=== PATIENT | male | born 1935 | race Caucasian/White ===

== ENCOUNTER 2016-02-29 12:50 | Outpatient (CLI) | payer MEDICARE ==
[2016-02-29 13:54] LABS: Anion Gap 14 mmol/L (10-20); BUN (Urea Nitrogen) 19 mg/dL (8.4-25.7); Calc. Creatinine Clearance 0 mL/min (70-130); Carbon Dioxide 24 mmol/L (23-31); Chloride 106 mmol/L (98-107); Estimated GFR-MDRD 33
== END 2016-02-29 12:51 | disposition home or self-care (01) ==
LOC: BURLAB 12:50
PROVIDERS: ATTEND Internal Medicine Cardiovascular Disease
DX: N18.9 Chronic kidney disease, unspecified (principal)
CPT/HCPCS: 36415; 80048

== ENCOUNTER 2016-04-04 10:36 | Outpatient (CLI) | payer MEDICARE ==
[2016-04-04 11:43] LABS: Anion Gap 14 mmol/L (10-20); BUN (Urea Nitrogen) 20 mg/dL (8.4-25.7); Calc. Creatinine Clearance 0 mL/min (70-130); Calcium 9.2 mg/dL (7.8-10.44); Carbon Dioxide 25 mmol/L (23-31); Chloride 105 mmol/L (98-107); Estimated GFR-MDRD 34
== END 2016-04-04 10:37 | disposition home or self-care (01) ==
LOC: BURLAB 10:36
PROVIDERS: ATTEND Internal Medicine Cardiovascular Disease
DX: I50.32 Chronic diastolic (congestive) heart failure (principal)
CPT/HCPCS: 36415; 80048

== ENCOUNTER 2016-04-11 13:58 | Outpatient (CLI) | payer MEDICARE ==
--- NOTE | 2016-04-11 17:24 | RAD ---
RIGHT KNEE 4 VIEWS: Date: 04/11/16 FINDINGS: No gross acute fracture was seen. There is a joint effusion, however, so the possibility of internal derangement is raised. A MRI would be needed to prove or disprove this. The tibial plateau seems in tact. There is bony spurring around the knee joint and the patellofemoral joint. Some faint arterial calcifications are present. The femur is subluxed somewhat medially on the tibia. IMPRESSION: 1. Joint effusion. Internal derangement not ruled out. 2. Degenerative changes as noted. POS: HOME
== END 2016-04-11 13:59 | disposition home or self-care (01) ==
LOC: BURRAD 13:58
PROVIDERS: ATTEND Family Medicine
DX: M25.561 Pain in right knee (principal); M25.461 Effusion, right knee

== ENCOUNTER 2016-08-09 13:03 | Emergency (ER) | payer MEDICARE ==
[2016-08-09 13:31] LABS: #Basophils 0.1 thou/uL (0.0-0.2); #Eosinphils 0.1 thou/uL (0.0-0.7); #Lymphocytes 0.9 thou/uL (1.20-3.40); #Monocytes 0.9 thou/uL (0.11-0.59); #Neutrophils 5.9 thou/uL (1.40-6.50); %Basophils 1.5 % (0.0-1.0); %Eosinophils 0.9 % (0.0-10.0); %Lymphocytes 11.7 % (21.0-51.0); %Monocytes 11.2 % (0.0-10.0); %Neutrophils 74.6 % (42.0-75.0); Hemoglobin 10.5 g/dL (14.0-18.0); Mean Corpuscular HGB CONC 34.8 g/dL (32.0-36.0); Mean Corpuscular Hemoglobin 33.3 pg (27.0-31.0); Mean Corpuscular Volume 95.8 fl (80.0-94.0); Mean Platelet Volume 5.8 fL (7.4-10.4); Platelet Count 154 thou/uL (130-400); RBC Distribution Width 13.7 % (11.5-14.5); Red Blood Cell (RBC) Count 3.14 mill/uL (4.70-6.10); White Blood Cell (WBC) Count 7.9 thou/uL (4.8-10.8)
[2016-08-09 13:48] LABS: CKMB 1.1 ng/mL (0-6.6); Troponin I 0.023 ng/mL (< 0.028)
[2016-08-09 13:49] LABS: ALT (SGPT) 12 U/L (8-55); AST (SGOT) 16 U/L (5-34); Albumin 3.4 g/dL (3.4-4.8); Alkaline Phosphatase 145 U/L (40-150); Anion Gap 14 mmol/L (10-20); BUN (Urea Nitrogen) 26 mg/dL (8.4-25.7); Bilirubin, Total 1.3 mg/dL (0.2-1.2); Calc. Creatinine Clearance 0 mL/min (70-130); Carbon Dioxide 19 mmol/L (23-31); Chloride 109 mmol/L (98-107); Estimated GFR-MDRD 27; Globulin 3.4 g/dL (2.4-3.5); Glucose 235 mg/dL (83-110); Magnesium 1.8 mg/dL (1.6-2.6); Potassium 4.7 mmol/L (3.5-5.1); Protein, Total 6.8 g/dL (5.8-8.1); Sodium 137 mmol/L (136-145)
--- NOTE | 2016-08-09 21:37 | CT ---
CT OF THE BRAIN WITHOUT CONTRAST 08/09/16 Comparison was made with a 01/29/12 CT scan. Diffuse atrophy and patchy hypolucency throughout the deep white matter was present consistent with chronic microvascular ischemia. The appearance is not substantially different than before. The ventr icles are normal in size for age and atrophy. There are no findings of acute stroke, though small st rokes would be easily missed against the ischemic background. No bleeding, mass, or edema was seen. The calvarium appears normal. The sphenoid sinus and mastoid air cells were clear. IMPRESSION: Chronic ischemic changes but no acute intracranial finding. POS: HOME
== END 2016-08-09 14:36 | disposition home or self-care (01) ==
LOC: BURERS 13:03
DX: H81.13 Benign paroxysmal vertigo, bilateral (principal); E11.9 Type 2 diabetes mellitus without complications; I25.10 Atherosclerotic heart disease of native coronary artery without angina pectoris; I12.9 Hypertensive chronic kidney disease with stage 1 through stage 4 chronic kidney disease, or unspecified chronic kidney disease; E11.22 Type 2 diabetes mellitus with diabetic chronic kidney disease; N18.9 Chronic kidney disease, unspecified; E78.5 Hyperlipidemia, unspecified; I49.9 Cardiac arrhythmia, unspecified; I48.91 Unspecified atrial fibrillation; F17.220 Nicotine dependence, chewing tobacco, uncomplicated; Z79.899 Other long term (current) drug therapy
CPT/HCPCS: 36415; 70450; 80053; 82553; 83735; 83880; 84484; 85025; 93005

== ENCOUNTER 2016-08-14 10:38 | Outpatient (CLI) | payer MEDICARE ==
[2016-08-14 11:52] LABS: #Basophils 0.1 thou/uL (0.0-0.2); #Eosinphils 0.2 thou/uL (0.0-0.7); #Lymphocytes 1.2 thou/uL (1.20-3.40); #Monocytes 0.9 thou/uL (0.11-0.59); #Neutrophils 4.2 thou/uL (1.40-6.50); %Basophils 1.3 % (0.0-1.0); %Eosinophils 2.6 % (0.0-10.0); %Lymphocytes 18.2 % (21.0-51.0); %Monocytes 14.2 % (0.0-10.0); %Neutrophils 63.8 % (42.0-75.0); Hemoglobin 11.4 g/dL (14.0-18.0); Mean Corpuscular Hemoglobin 32.7 pg (27.0-31.0); Mean Corpuscular Volume 96.2 fl (80.0-94.0); Mean Platelet Volume 5.7 fL (7.4-10.4); Platelet Count 226 thou/uL (130-400); RBC Distribution Width 13.7 % (11.5-14.5); Red Blood Cell (RBC) Count 3.47 mill/uL (4.70-6.10); White Blood Cell (WBC) Count 6.6 thou/uL (4.8-10.8)
[2016-08-14 12:08] LABS: ALT (SGPT) 13 U/L (8-55); AST (SGOT) 17 U/L (5-34); Albumin 3.7 g/dL (3.4-4.8); Alkaline Phosphatase 150 U/L (40-150); Anion Gap 15 mmol/L (10-20); BUN (Urea Nitrogen) 28 mg/dL (8.4-25.7); Bilirubin, Total 0.9 mg/dL (0.2-1.2); Calc. Creatinine Clearance 0 mL/min (70-130); Calcium 9.2 mg/dL (7.8-10.44); Carbon Dioxide 23 mmol/L (23-31); Cardiac Risk 4.9 (Less than 4.5); Chloride 106 mmol/L (98-107); Cholesterol 170 mg/dl (< 200 Desired); Estimated GFR-MDRD 27; Globulin 3.5 g/dL (2.4-3.5); Glucose 163 mg/dL (83-110); HDL Cholesterol 35 mg/dL (>60 Neg Risk); LDL Cholesterol, Calculated 109 mg/dL; Protein, Total 7.2 g/dL (5.8-8.1); Sodium 139 mmol/L (136-145); Triglycerides 130 mg/dL (Less than 150)
[2016-08-14 12:18] LABS: Hemoglobin A1c 7.1 % (4.0-6.0)
== END 2016-08-14 10:39 | disposition home or self-care (01) ==
LOC: HPCALD 10:38
PROVIDERS: ATTEND Family Medicine
DX: E78.5 Hyperlipidemia, unspecified (principal); E53.8 Deficiency of other specified B group vitamins; E11.9 Type 2 diabetes mellitus without complications; I10 Essential (primary) hypertension
CPT/HCPCS: 36415; 80053; 80061; 82607; 83036; 85025

== ENCOUNTER 2016-09-13 10:33 | Emergency (ER) | payer MEDICARE ==
[2016-09-13] MEDS ORDERED: EPINEPHrine 1 MG/10 ML Abboject SYRINGE ONE (10:49)
[2016-09-13 10:51] LABS: #Basophils 0.2 thou/uL (0.0-0.2); #Neutrophils 6.3 thou/uL (1.40-6.50); %Basophils 2.1 % (0.0-1.0); %Eosinophils 0.5 % (0.0-10.0); %Monocytes 11.3 % (0.0-10.0); %Neutrophils 74.1 % (42.0-75.0); Mean Corpuscular HGB CONC 33.8 g/dL (32.0-36.0); Mean Corpuscular Volume 97.4 fl (80.0-94.0); Mean Platelet Volume 5.9 fL (7.4-10.4); Platelet Count 209 thou/uL (130-400); RBC Distribution Width 14.1 % (11.5-14.5); Red Blood Cell (RBC) Count 3.33 mill/uL (4.70-6.10); White Blood Cell (WBC) Count 8.5 thou/uL (4.8-10.8)
[2016-09-13 11:01] LABS: INR-International Normal Ratio 1.2; PTT 34.9 SEC (22.9-36.1); Prothrombin Time 15.1 SEC (12.0-14.7)
[2016-09-13 11:12] LABS: ALT (SGPT) 10 U/L (8-55); AST (SGOT) 17 U/L (5-34); Albumin 3.6 g/dL (3.4-4.8); Alkaline Phosphatase 151 U/L (40-150); Anion Gap 17 mmol/L (10-20); BUN (Urea Nitrogen) 28 mg/dL (8.4-25.7); Bilirubin, Total 1.4 mg/dL (0.2-1.2); Calc. Creatinine Clearance 0 mL/min (70-130); Calcium 9.4 mg/dL (7.8-10.44); Carbon Dioxide 19 mmol/L (23-31); Chloride 105 mmol/L (98-107); Estimated GFR-MDRD 25; Globulin 4.1 g/dL (2.4-3.5); Glucose 246 mg/dL (83-110); Potassium 4.2 mmol/L (3.5-5.1); Protein, Total 7.7 g/dL (5.8-8.1); Sodium 137 mmol/L (136-145)
[2016-09-13 11:13] LABS: CKMB 1.1 ng/mL (0-6.6); Troponin I 0.026 ng/mL (< 0.028)
--- NOTE | 2016-09-13 21:24 | RAD ---
PORTABLE CHEST 09/13/16 An AP portable film at 1047 is compared with a 01/18/16 study done at [facility]. There is a moderate sized left pleural effusion that was not present before. The vessels appear slig htly congested. The cardiac size is about the same as before. No lobar consolidations were seen on t he right. IMPRESSION: 1. Moderate sized left pleural effusion. 2. Slight congestive change. Code T POS: HOME
== END 2016-09-13 11:44 | disposition short-term general hospital (02) ==
LOC: BURERS 10:33
DX: I48.91 Unspecified atrial fibrillation (principal); J90 Pleural effusion, not elsewhere classified; I25.10 Atherosclerotic heart disease of native coronary artery without angina pectoris; E11.9 Type 2 diabetes mellitus without complications; I12.9 Hypertensive chronic kidney disease with stage 1 through stage 4 chronic kidney disease, or unspecified chronic kidney disease; N18.9 Chronic kidney disease, unspecified; F17.220 Nicotine dependence, chewing tobacco, uncomplicated; Z87.01 Personal history of pneumonia (recurrent); Z79.84 Long term (current) use of oral hypoglycemic drugs; Z79.899 Other long term (current) drug therapy
CPT/HCPCS: 71010; 80053; 82553; 83735; 83880; 84484; 85025; 85610; 85730; 93005; 96361; 96374; J0171; J3490